=== PATIENT | female | born 1985 | race Caucasian/White ===

== ENCOUNTER 2025-04-13 10:57 | Emergency (ER) | payer OTHER ==
[2025-04-13] MEDS ORDERED: Prochlorperazine 10 MG/2 ML VIAL ONE (11:32)
[2025-04-13] MEDS ORDERED: diphenhydrAMINE 50 MG/ML VIAL ONE (11:32)
[2025-04-13] MEDS ORDERED: Ketorolac Tromethamine 30 MG (1 mL) VIAL ONE (11:32)
[2025-04-13] MEDS ORDERED: Acetaminophen 500 MG TAB ONE (12:14)
== END 2025-04-13 12:25 | disposition home or self-care (01) ==
LOC: MADERS 10:57
DX: G43.909 Migraine, unspecified, not intractable, without status migrainosus (principal)
CPT/HCPCS: 96361; 96374; 96375; J0780; J1200; J1885; J7030